=== PATIENT | male | born 1950 | race Caucasian/White ===

== ENCOUNTER 2022-05-02 19:06 | Inpatient (IN) | payer MEDICARE, OTHER, SELFPAY ==
--- NOTE | ~2022-05-02 | XR_ITS ---
EXAMINATION: XR ERCP DATE: 05/07/2022 12:57 INDICATION: Pancreatitis. TECHNIQUE: 5 spot fluoroscopic images of the right upper quadrant were obtained during endoscopic ret rograde cholangiopancreatography (ERCP). Fluoroscopy exposure time was 153 seconds. COMPARISON: CT abdomen and pelvis 07/14/2015 FINDINGS: The endoscope is in the second portion the duodenum. There is a wire with balloon in the co mmon duct. There is partial opacification of the common duct the contrast. There are surgical clips f rom cholecystectomy. IMPRESSION: 1. Balloon sweeping of the common duct. Please refer to the ERCP procedure note for additional detail s. Reviewed, dictated and finalized at location A. IMPRESSION: 1. Balloon sweeping of the common duct. Please refer to the ERCP procedure note for additional details.
--- NOTE | ~2022-05-02 | US_ITS ---
EXAMINATION: US abdomen limited DATE: 05/03/2022 08:47 INDICATION: Abdominal pain. Acute pancreatitis. No abnormal liver function tests. TECHNIQUE: Multiple grayscale and Doppler ultrasound images of the abdomen were obtained. COMPARISON: CT abdomen and pelvis 07/14/2015 FINDINGS: The visualized portions of the body of the pancreas are normal. The liver demonstrates hete rogeneous steatosis. No definite liver surface nodularity. There is normal flow in main portal vein. The gallbladder is absent. The common duct is enlarged to 10 mm, increased from 8 mm on 07/14/2015. IMPRESSION: 1. Hepatic steatosis. 2. Borderline dilated common duct status post cholecystectomy. Reviewed, dictated and finalized at location A.
--- NOTE | ~2022-05-02 | US_ITS ---
EXAMINATION: US venous doppler LE RT DATE: 05/03/2022 10:49 INDICATION: Hematoma at the right knee post recent surgery. TECHNIQUE: Grayscale ultrasound images without and with compression and Doppler ultrasound images of the right lower extremity veins were obtained. COMPARISON: None. FINDINGS: The visualized portions of right common femoral vein, profunda (deep) femoral vein, femoral vein, pop liteal vein, peroneal trunk, posterior tibial veins, peroneal veins, gastrocnemius vein and greater s aphenous vein outflow are patent. Complex Wood's cyst measuring 7.0 x 4.1 x 1.8 cm with complex hypo echoic fluid likely representing postoperative blood but without internal vascular flow on color Dopp ler. IMPRESSION: 1. No deep venous thrombosis in the right lower limb. 2. Complex fluid, likely postoperative hematoma within a moderate-sized Wood's cyst moderate at the right popliteal fossa. Reviewed, dictated and finalized at location A.
[2022-05-02 18:30] VITALS: BP 150/57; PULSE 86; RESP 20; TEMP 36.7; O2SAT 93
--- NOTE | 2022-05-02 18:31 | ADMGEN ---
This patient, Jayjay Galvan, was admitted to [facility] Surg Room 311-01 at 1825. Patient/family oriented to hospital policies and general routines including ID bracelet, bed and alarms, visiting hours, pain management, procedures, bathroom and other care routines, personal items, smoking policy, room service/diet, and visiting hours. Information on how to activate the Rapid Response Team has been discussed. Patient/Family are encouraged to report perceived risks to care and to ask questions if they do not understand what they are told or what they should do.
[2022-05-02 18:47] VITALS: BMI 38.3
[2022-05-02 19:00] VITALS: BMI 38.3
--- NOTE | 2022-05-02 21:04 | PM.IMHP ---
H&P: HPI History of Present Illness Date/Time: 05/02/222020 Chief Complaint: Abdominal Pain Narrative: This pleasant 71 year old male patient with significant PMH of CAD s/p MS and Cardiac stents x12, PAF not on any anticoagulation other than Baby ASA daily, Diastolic Heart Failure, HTN, GERD, Cholecystectomy 2008, Renal CA of Bladder and kidney with partial nephrectomy and bladder fulgration, Depression, HLD, HTN, PMR, MRSA from Groin wound, Sciatica, and Right knee Arthroscopy now 4 days ago with medial meniscal debridement presents to the Hospitalist Service at [facility] as a Direct Admit transfer from [facility] in [place], [place] with Acute Pancreatitis. He presented there with complaints of having abdominal pain that he endorses started right after his knee surgery on Tuesday and it did not resolve with any cathartics as he originally believed he was constipated after surgery. Workup in their ER was significant for a WBC count of 30.2 with Absolute Neutrophils of 25.97, mildly low Sodium at 125 that increased to 130 prior to transfer and a Potassium level of 3.3 that went down to 3.2 and he received a K+ rider in route. His renal function was normal and he had a normal Lactic acid. CT abdomen and pelvis showed Acute Pancreatitis, Diverticulosis without Diverticulitis, Severe coronary artery calcifications, and evidence of prior granulomatous disease. CXR was negative for any acute findings. The ER physician advised that there were some findings present on the CT scan that were concerning for a possible Choledocholithiasis, prompting him to be transferred as they did not have the capabilities of performing a ERCP in their facility. On my assessment meeting this patient in room 311, he denies any CP, Dyspnea, headache, lightheadedness, but does endorse that he has abdominal pain all across the upper regions of the abdomen with worsening in the epigastric region radiating to the LUQ. He has intermittent Nausea without vomiting. Even with his significant history of CAD and with his history of PAF, he only takes a Baby ASA daily for anticoagulation. Search of the EMR does not give any history of ECHO/Cath reports/Stress reports. There is mention in his records from other facility that he had Heart catheterizations in 09/2009, 09/2012, 05/2015 and 05/02/2019 in which his EF was noted to be 65% during the cath from 2019. It does also mention that he has multiple stents in the following arteries: LAD, Posterior Descending and Circumflex. Review of Systems Review of Systems: All systems reviewed & are unremarkable except as noted in HPI and below PMFSH Past Medical History Medical History CAD (coronary artery disease) Depression Diastolic heart failure History of left heart catheterization Hyperlipidemia Hypertension MRSA (methicillin resistant staph aureus) culture positive Paroxysmal atrial fibrillation PMR (polymyalgia rheumatica) Renal cancer Sciatica Surgical History Surgical History H/O partial nephrectomy History of cholecystectomy History of heart artery stent Social History Social History Smoking status: Former smoker Tobacco type: cigarettes Second hand tobacco smoke exposure: No Alcohol intake: current Alcohol use details: Drinks approximately twice/year. Substance use: never Living arrangements: with family Occupation/Education: occupation Additional occupation/education comments: [employer] Gender identity (if verbalized by the patient): Male Spiritual care concerns: No Meds Home Medications and Allergies Home Medications Medication Instructions Recorded Confirmed Type amlodipine 10 mg tablet 10 tablet PO DAILY 05/02/22 05/02/22 History aspirin 81 mg tablet,delayed 81 mg PO DAILY 05/02/22 05/02/22 History
[2022-05-02 21:19] LABS: Basophils Percent Auto 0.1 % (0.2-1.2); Eosinophils Percent Auto 0.1 % (0-4.4); Hematocrit 32.8 % (42.0-52.0); Immature Granulocyte Absolute 0.19 K/mm3 (0.00-0.031); Immature Granulocyte Percent A 0.8 % (0-0.5); Lymphocytes Absolute Auto 1.21 K/mm3 (0.9-3.2); Lymphocytes Percent Auto 5.1 % (18.3-44.2); Mean Corpuscular HGB Conc 33.5 g/dl (32-36); Mean Corpuscular Hemoglobin 29.2 pg (26-34); Mean Platelet Volume 10.9 fl (7.4-10.4); Monocytes Absolute Auto 2.4 K/mm3 (0.1-0.6); Monocytes Percent Auto 9.9 % (2.6-8.5); Neutrophils Absolute Auto 20.1 K/mm3 (1.3-6.7); Platelet Count Result 265 k/mm3 (150-375); Red Blood Count 3.77 M/mm3 (4.6-6.20); Red Cell Distribution Width 13.2 % (11.5-14.5); White Blood Count 23.9 K/mm3 (4.5-10.0)
[2022-05-02] MEDS: HYDROmorphone HCL INJ (*CRX) 1 MG/ML SYR IV PUSH (21:24)
[2022-05-02] MEDS: PANTOPRAZOLE SODIUM IV 40 MG VIAL IV PUSH (21:24)
[2022-05-02 21:28] LABS: Alanine Aminotransferase 292 U/L (6-50); Albumin Level 3.3 g/dL (3.5-5.1); Alkaline Phosphatase 219 U/L (38-126); Anion Gap 4 mmol/L (8-16); Aspartate Amino Transferase 146 U/L (17-59); Bilirubin,Total 4.3 mg/dL (0.2-1.3); Blood Urea Nitrogen 11 mg/dL (9-20); Calcium 8.1 mg/dL (8.4-10.2); Carbon Dioxide 27 mmol/L (22-30); Chloride 97 mmol/L (98-107); Estimated CRCL calculation 82 ml/min; Estimated Glomerular Filt Rate > 60; Glucose 104 mg/dL (65-110); Lipase 238 U/L (23-300); Magnesium 2.4 mg/dL (1.6-2.3); Potassium 3.4 mmol/L (3.4-5.0); Sodium 128 mmol/L (137-145)
[2022-05-02 21:29] LABS: INR 1.1; Lactic Acid Reflex 1.2 mmol/L (0.7-2.0); Prothrombin Time 14.1 Seconds (11.1-14.7)
[2022-05-02 21:30] LABS: Partial Thromboplastin Time 35.8 SECONDS (22.3-36.8)
[2022-05-02 21:32] LABS: Platelet Estimate Adequate (Adequate)
[2022-05-02 21:33] LABS: Burr Cells 1+ (NORMAL)
[2022-05-02 21:45] LABS: Hemoglobin A1C 5.1 % (<5.7)
[2022-05-02 22:00] VITALS: BP 152/58; PULSE 94; RESP 13; TEMP 36.3; O2SAT 93
[2022-05-02 22:17] LABS: Procalcitonin 0.5 ng/mL
[2022-05-02] MEDS: SODIUM CHLORIDE 0.9% IV 1,000 ML 125 ML IV CONT (22:50)
[2022-05-02 23:42] LABS: Bilirubin Direct 0.2 mg/dL (0-0.3); Bilirubin Indirect 2.6 mg/dL (0-1.1)
[2022-05-03] MEDS: CIPROFLOXACIN 400 MG/D5W 200ML 200 ML 200 MG IVPB ×3 (00:06→20:23)
[2022-05-03 00:17] LABS: Hepatitis B Surface Antigen Negative (Negative)
[2022-05-03 00:22] LABS: HAV RESULT Negative (Negative); Hepatitis B Core IgM Result Negative (Negative)
[2022-05-03 00:34] LABS: Hepatitis C Virus Antibody Negative (Negative)
[2022-05-03] MEDS: metroNIDAZOLE 500 MG/ISO 100ML 500 MG/100 ML BAG 100 MG IVPB ×4 (01:13→21:29)
[2022-05-03] MEDS: HYDROmorphone HCL INJ (*CRX) 1 MG/ML SYR IV PUSH ×4 (05:41→22:49)
[2022-05-03 06:00] VITALS: BP 153/65; PULSE 97; RESP 14; TEMP 36.4; O2SAT 98
[2022-05-03 06:14] LABS: Basophils Percent Auto 0.1 % (0.2-1.2); Eosinophils Absolute Auto 0.1 K/mm3 (0-0.3); Eosinophils Percent Auto 0.3 % (0-4.4); Hematocrit 30.7 % (42.0-52.0); Hemoglobin 10.4 g/dL (14.0-18.0); Immature Granulocyte Percent A 0.9 % (0-0.5); Lymphocytes Absolute Auto 1.03 K/mm3 (0.9-3.2); Lymphocytes Percent Auto 4.9 % (18.3-44.2); Mean Corpuscular HGB Conc 33.9 g/dl (32-36); Mean Corpuscular Hemoglobin 29.5 pg (26-34); Mean Platelet Volume 11.5 fl (7.4-10.4); Monocytes Absolute Auto 2.3 K/mm3 (0.1-0.6); Monocytes Percent Auto 10.8 % (2.6-8.5); Neutrophils Absolute Auto 17.5 K/mm3 (1.3-6.7); Platelet Count Result 288 k/mm3 (150-375); Red Blood Count 3.53 M/mm3 (4.6-6.20); Red Cell Distribution Width 13.2 % (11.5-14.5); White Blood Count 21.1 K/mm3 (4.5-10.0)
[2022-05-03 06:19] LABS: Alanine Aminotransferase 213 U/L (6-50); Alkaline Phosphatase 200 U/L (38-126); Anion Gap 6 mmol/L (8-16); Aspartate Amino Transferase 84 U/L (17-59); Bilirubin,Total 3.6 mg/dL (0.2-1.3); Blood Urea Nitrogen 10 mg/dL (9-20); Calcium 7.6 mg/dL (8.4-10.2); Carbon Dioxide 24 mmol/L (22-30); Chloride 100 mmol/L (98-107); Estimated CRCL calculation 93 ml/min; Estimated Glomerular Filt Rate > 60; Glucose 108 mg/dL (65-110); Lipase 122 U/L (23-300); Magnesium 2.2 mg/dL (1.6-2.3); Potassium 3.2 mmol/L (3.4-5.0); Sodium 130 mmol/L (137-145)
[2022-05-03 06:20] LABS: INR 1.2; Prothrombin Time 14.6 Seconds (11.1-14.7)
[2022-05-03 06:21] LABS: Partial Thromboplastin Time 44.1 SECONDS (22.3-36.8)
[2022-05-03 06:22] LABS: Lactic Acid Reflex 1.2 mmol/L (0.7-2.0)
[2022-05-03 06:41] LABS: Cholesterol 117 mg/dL (0-200); HDL Direct 25 mg/dL; Triglycerides 129 mg/dL (<150)
[2022-05-03 06:51] LABS: LDL Cholesterol Direct 41 mg/dL
--- NOTE | 2022-05-03 07:53 | PM.IMPN ---
Progress Note: A&P Assessment and Plan (1) Acute pancreatitis: Code(s): K85.90 - Acute pancreatitis without necrosis or infection, unspecified Status: Acute Assessment and Plan: - Consult GI Service, appreciate their co-management. - Lipase at outside facility was >700. ---improved - Continue IVF of NS at 125 ml/hr - PRN pain meds and anti-emetics -fasting lipids WNL - NPO - Concern for possible Choledocholithiasis - Trend Labs and monitor VS. - US of RUQ abdomen pending. (2) Hyperbilirubinemia: Code(s): E80.6 - Other disorders of bilirubin metabolism Status: Acute Assessment and Plan: - 4.3 Total Bilirubin - Check direct and indirect Bili levels - Concern for possible Choledocholithiasis - As LFT's and Bili are both markedly elevated with ALT at 292, AST of 146 and Alk Phos of 219, Hepatitis Panel ordered. - Other possible etiology is the extensive bruising noted to the RLE above and medial of the knee from his recent Knee arthroscopy. Pt. had a tourniquet in place. However, will order a venous Doppler due to the patient's lower extremity edema and tightness around the area (3) Leukocytosis, unspecified: Code(s): D72.829 - Elevated white blood cell count, unspecified Status: Acute Assessment and Plan: - Markedly elevated at 23.9 with elevated Absolute Neutrophils of 20.1. - Normal Lactic Acid - Procalcitonin pending - Etiology of elevated WBC count includes Infection or Inflammation from both the Pancreas as well as the right knee as he is four days post Right Knee Arthroscopy. - VSS, pt. does not meet Sepsis criteria, but as there is possible concern for infection, will start abx of Cipro and Flagyl empirically. May de-escalate or stop abx when clinically appropriate. Choice of abx based upon allergies. (4) S/P right knee arthroscopy: Code(s): Z98.890 - Other specified postprocedural states Status: Acute Assessment and Plan: - Post-op Day #4 today - PRN pain control (5) CAD (coronary artery disease): Code(s): I25.10 - Atherosclerotic heart disease of [place] coronary artery without angina pectoris Status: Acute Assessment and Plan: - Significant History identified from PMH - Cardiac stents x12, multiple cardiac catheterizations x4 - Child Specialist is Dr. Perez at [facility] in [facility] - Pt's only re-occlusion prevention is ASA. He does not take Plavix or other anticoagulant. - Currently asymptomatic of any CP, but if he develops any, it should be remembered he is an extremely high risk with his history. (6) HLD (hyperlipidemia): Code(s): E78.5 - Hyperlipidemia, unspecified Status: Acute Assessment and Plan: - Fasting lipid panel ordered for morning to assess for causation of Pancreatitis - Continue Atorvastatin 80 mg po daily. - NPO now, but when able to eat, suggest Prudent Cardiac Diet. (7) HTN (hypertension): Code(s): I10 - Essential (primary) hypertension Status: Acute Assessment and Plan: - Continue to monitor labs and VS. - Continue home meds of Amlodipine 10 mg po daily, Lisinopril 40 mg po daily, Metoprolol Succinate 100 mg po daily (8) Transaminitis: Code(s): R74.01 - Elevation of levels of liver transaminase levels Status: Acute Assessment and Plan: - As LFT's and Bili are both markedly elevated with ALT at 292, AST of 146 and Alk Phos of 219, Hepatitis Panel ordered. - Concern for Choledocholithiasis in the setting of having had a previous Cholecystectomy, and in the setting of having acute pancreatitis. - Trend labs and VS - RUQ US ordered for tomorrow. - Hepatitis Panel pending. (9) Hematoma: Code(s): T14.8XXA - Other injury of unspecified body region, initial encounter Status: Acute Assessment and Plan: Patient has significant hematoma to the right anterior thigh, swelling, firm and tight Obtain a venous Doppler to rule out possi
[2022-05-03 08:30] LABS: CRP 26.2 mg/dL (<1.0)
[2022-05-03] MEDS: SODIUM CHLORIDE 0.9% IV 1,000 ML 125 ML IV CONT (09:22)
[2022-05-03] MEDS: amLODIPine BESYLATE 5 MG TABLET 10 MG PO (09:23)
[2022-05-03 09:24] VITALS: PULSE 94
[2022-05-03] MEDS: ATORVASTATIN 40 MG TABLET 80 MG PO (09:24)
[2022-05-03] MEDS: CHOLECALCIFEROL 1,000 UNITS TABLET 1000 UNITS PO (09:24)
[2022-05-03] MEDS: PANTOPRAZOLE SODIUM IV 40 MG VIAL IV PUSH ×2 (09:24→20:23)
[2022-05-03] MEDS: lisinopriL 20 MG TABLET 40 MG PO (09:24)
[2022-05-03] MEDS: METOPROLOL SUCCINATE EXT REL 100 MG TABCR PO (09:24)
[2022-05-03 09:44] LABS: Platelet Estimate Adequate (Adequate)
--- NOTE | 2022-05-03 10:24 | PCOTNOTE ---
Attempted to see pt. for occupational therapy evaluation. Pt. still awaiting selena doppler on R LE to rule out DVT and active bleed. Pt. informed also stating that he was too tired at this time to participate. Nursing updated. Will follow.
--- NOTE | 2022-05-03 10:34 | PCPTNOTE ---
Attempted to see pt. for PT evaluation. Pt. still awaiting selena Doppler on R LE to rule out DVT and active bleed. Pt. informed also stating that he was too tired at this time to participate. Nursing updated. Will follow.
[2022-05-03] MEDS: KCL 20 MEQ/SW 100 ML 100 ML 50 MEQ IVPB (11:11)
--- NOTE | 2022-05-03 12:00 | PCOTNOTE ---
Attempted to see pt. for occupational therapy evaluation. Pt. refused at this time due to fatigue and discomfort.
[2022-05-03 14:00] VITALS: BP 136/52; PULSE 86; RESP 18; TEMP 36.5; O2SAT 90
--- NOTE | 2022-05-03 14:12 | PCPTNOTE ---
Attempted PT evaluation, Patient adamantly refused stating he doesn't need physical therapy. Per patient, he has not ate/drank anything and is too weak to do anything. RN in room as patient refused. Will follow.
--- NOTE | 2022-05-03 14:45 | WPDGICN ---
Assessment and Plan Assessment and plan (1) Hyperbilirubinemia: Code(s): E80.6 - Other disorders of bilirubin metabolism Status: Acute Assessment and Plan: he is visibly jaundiced. His bilirubin is a bit lower today. I suspect he has common bile duct sludge or stone also explaining the mild bile duct dilatation. If this resolves spontaneously his bilirubin should drop relatively quickly. Assuming it does not, I will plan on performing ERCP tomorrow (2) Transaminitis: Code(s): R74.01 - Elevation of levels of liver transaminase levels Status: Acute Assessment and Plan: this is likely due to his suspected choledocholithiasis. Liver disease less likely but we will trend his transaminases. (3) CAD (coronary artery disease): Code(s): I25.10 - Atherosclerotic heart disease of [place] coronary artery without angina pectoris Status: Acute Assessment and Plan: He has also had atrial fibrillation. He takes 1 aspirin tablet a day. (4) Acute pancreatitis: Code(s): K85.90 - Acute pancreatitis without necrosis or infection, unspecified Status: Acute Assessment and Plan: He has never had pancreatitis in the past. He does not drink alcohol. Was no recent change in his medications. It appears that he probably has choledocholithiasis. I akilah a picture explain the process. Also explained ERCP in told that tentatively I will schedule him for that to be done tomorrow. In the interim I think he can have a clear liquid diet GI Consult Note Consult date/time: 05/03/22 14:45 HPI: Jayjay Galvan is a 71 year old male who was admitted with abdominal pain nausea vomiting. He states that this all began shortly after he had arthroscopic right knee surgery last week Tuesday. Later in the day he was having upper abdominal discomfort and thought perhaps he had been wearing a binder during the procedure. He did begin to notice a great deal of ecchymosis on the inner aspect of his thigh after surgery. By he was very nauseated and has also been vomiting. He over those next 4 days he had 2 bites of cottage cheese, and 1 or 2 other tiny snacks. He has no appetite and is nauseated. He states that the hydromorphone helps cut his pain but it comes back in about 3 hours. His noticed that he was becoming jaundiced. He has no past history of liver disease or pancreatic disease. His lipase was normal on admission but CT scan that showed pancreatitis. Liver enzymes also are elevated, bilirubin 4.3 on admission, now 3.6 likewise AST and ALT are elevated as is the alkaline phosphatase. he denies drinking alcohol except about twice a year. He did have his gallbladder removed several years ago. He also has coronary artery disease and described how he was hospitalized for 1 day with weakness he had a normal CT scan and the nurse practitioner wanted to obtain an ultrasound looking for kidney stones, even though he had a normal ultrasound just days before as an outpatient. He states that they then ruled losing discharged him; but within 24 hours his local provider visited him at his house and found that his oxygen saturation was in the 60s and he had a tachycardia. He was found to have acute atrial fibrillation at that time. Consequently he takes aspirin once a day now Review of Systems Review of Systems: All systems reviewed & are unremarkable except as noted in HPI and below PMFSH Past Medical History Medical History CAD (coronary artery disease) Depression Diastolic heart failure History of left heart catheterization Hyperlipidemia Hypertension MRSA (methicillin resistant staph aureus) culture positive Paroxysmal atrial fibrillation PMR (polymyalgia rheumatica) Renal cancer Sciatica Surgical History Surgical History H/O partial nephrectomy History of
[2022-05-03 22:00] VITALS: BP 138/61; PULSE 83; RESP 18; TEMP 36.9; O2SAT 97
[2022-05-04] VITALS (10 sets, daily range): BP systolic 121–153; BP diastolic 44–71; PULSE 70–82; RESP 17–27; TEMP 36.2–37.1; O2SAT 90–100
[2022-05-04] MEDS: SODIUM CHLORIDE 0.9% IV 1,000 ML 125 ML IV CONT (04:05)
[2022-05-04] MEDS: HYDROmorphone HCL INJ (*CRX) 1 MG/ML SYR IV PUSH ×2 (04:06→09:16)
[2022-05-04] MEDS: metroNIDAZOLE 500 MG/ISO 100ML 500 MG/100 ML BAG 100 MG IVPB ×2 (05:21→20:59)
[2022-05-04 06:27] LABS: Basophils Percent Auto 0.2 % (0.2-1.2); Eosinophils Absolute Auto 0.3 K/mm3 (0-0.3); Eosinophils Percent Auto 1.6 % (0-4.4); Hematocrit 26.9 % (42.0-52.0); Hemoglobin 8.8 g/dL (14.0-18.0); Immature Granulocyte Absolute 0.21 K/mm3 (0.00-0.031); Immature Granulocyte Percent A 1.1 % (0-0.5); Lymphocytes Absolute Auto 1.32 K/mm3 (0.9-3.2); Lymphocytes Percent Auto 7.1 % (18.3-44.2); Mean Corpuscular HGB Conc 32.7 g/dl (32-36); Mean Corpuscular Hemoglobin 28.9 pg (26-34); Mean Corpuscular Volume 88.5 fl (80-100); Mean Platelet Volume 10.6 fl (7.4-10.4); Monocytes Absolute Auto 2.1 K/mm3 (0.1-0.6); Monocytes Percent Auto 11.1 % (2.6-8.5); Neutrophils Absolute Auto 14.8 K/mm3 (1.3-6.7); Neutrophils Percent Auto 78.9 % (45.5-73.1); Platelet Count Result 247 k/mm3 (150-375); Red Blood Count 3.04 M/mm3 (4.6-6.20); Red Cell Distribution Width 13.7 % (11.5-14.5); White Blood Count 18.7 K/mm3 (4.5-10.0)
[2022-05-04 06:40] LABS: Lactic Acid Reflex 0.7 mmol/L (0.7-2.0)
[2022-05-04 06:47] LABS: Alanine Aminotransferase 127 U/L (6-50); Albumin Level 2.6 g/dL (3.5-5.1); Alkaline Phosphatase 166 U/L (38-126); Anion Gap 3 mmol/L (8-16); Aspartate Amino Transferase 44 U/L (17-59); Bilirubin,Total 2.4 mg/dL (0.2-1.3); Blood Urea Nitrogen 11 mg/dL (9-20); Calcium 6.9 mg/dL (8.4-10.2); Carbon Dioxide 26 mmol/L (22-30); Chloride 103 mmol/L (98-107); Estimated CRCL calculation 82 ml/min; Estimated Glomerular Filt Rate > 60; Glucose 92 mg/dL (65-110); Magnesium 2.2 mg/dL (1.6-2.3); Potassium 3.5 mmol/L (3.4-5.0); Sodium 132 mmol/L (137-145)
[2022-05-04] MEDS: PANTOPRAZOLE SODIUM IV 40 MG VIAL IV PUSH ×2 (09:14→20:59)
[2022-05-04] MEDS: CHOLECALCIFEROL 1,000 UNITS TABLET 1000 UNITS PO (09:14)
[2022-05-04] MEDS: lisinopriL 20 MG TABLET 40 MG PO (09:15)
[2022-05-04] MEDS: ATORVASTATIN 40 MG TABLET 80 MG PO (09:16)
--- NOTE | 2022-05-04 11:54 | PM.IMPN ---
Progress Note: A&P Assessment and Plan (1) Acute pancreatitis: Code(s): K85.90 - Acute pancreatitis without necrosis or infection, unspecified Status: Acute Assessment and Plan: - Consult GI Service, appreciate their co-management. plan for ERCP today. - Lipase at outside facility was >700. Lipase now normal. Monitor daily. - Continue IVF of NS at 125 ml/hr . The patient stated he tried some liquids yesterday but was not able to tolerate them. May consider switching to LR D5 half-normal saline. - PRN pain meds and anti-emetics -fasting lipids WNL - NPO - Concern for possible Choledocholithiasis - Trend Labs and monitor VS. (2) Hyperbilirubinemia: Code(s): E80.6 - Other disorders of bilirubin metabolism Status: Acute Assessment and Plan: - 4.3 Total Bilirubin But today is 2.4 on 05/04/2022. - Check direct and indirect Bili levels - Concern for possible Choledocholithiasis - As LFT's and Bili are both markedly elevated with ALT at 177, AST of 44 and Alk Phos of 166. - Other possible etiology is the extensive bruising noted to the RLE above and medial of the knee from his recent Knee arthroscopy. Pt. had a tourniquet in place. Venous Dopplers negative for DVT. (3) Leukocytosis, unspecified: Code(s): D72.829 - Elevated white blood cell count, unspecified Status: Acute Assessment and Plan: - White count is down to 18.7. - Normal Lactic Acid - Etiology of elevated WBC count includes Infection or Inflammation from both the Pancreas as well as the right knee as he is Six days post Right Knee Arthroscopy. - VSS, pt. does not meet Sepsis criteria, but as there is possible concern for infection, will start abx of Cipro and Flagyl empirically. May de-escalate or stop abx when clinically appropriate. Choice of abx based upon allergies. (4) S/P right knee arthroscopy: Code(s): Z98.890 - Other specified postprocedural states Status: Acute Assessment and Plan: - Post-op Day #6 today - PRN pain control - continue with ice pack on every 2 hours. (5) CAD (coronary artery disease): Code(s): I25.10 - Atherosclerotic heart disease of [place] coronary artery without angina pectoris Status: Acute Assessment and Plan: - Significant History identified from [facility] - Cardiac stents x12, multiple cardiac catheterizations x4 - Arts Education Teacher is Dr. Perez at [facility] in [facility] - Pt's only re-occlusion prevention is ASA. He does not take Plavix or other anticoagulant. - Currently asymptomatic of any CP, but if he develops any, it should be remembered he is an extremely high risk with his history. (6) HLD (hyperlipidemia): Code(s): E78.5 - Hyperlipidemia, unspecified Status: Acute Assessment and Plan: - Fasting lipid panel - hold statin due to elevated liver enzymes. - NPO now, but when able to eat, suggest Prudent Cardiac Diet. (7) HTN (hypertension): Code(s): I10 - Essential (primary) hypertension Status: Acute Assessment and Plan: - Continue to monitor labs and VS. - Continue home meds of Amlodipine 10 mg po daily, Lisinopril 40 mg po daily, Metoprolol Succinate 100 mg po daily (8) Transaminitis: Code(s): R74.01 - Elevation of levels of liver transaminase levels Status: Acute Assessment and Plan: - As LFT's and Bili are both markedly elevated . - Concern for Choledocholithiasis in the setting of having had a previous Cholecystectomy, and in the setting of having acute pancreatitis. - Trend labs and VS - RUQ US Read as 1. Hepatic steatosis. 2. Borderline dilated common duct status post cholecystectomy. - Hepatitis Panel pending. - ERCP pending (9) Hematoma: Code(s): T14.8XXA - Other injury of unspecified body region, initial encounter Status: Acute Assessment and Plan: Patient has significant hematoma to the right anterior thigh, swelling, firm and tight
--- NOTE | 2022-05-04 12:13 | PCPTNOTE ---
Attempted PT evaluation, per patient he does not need physical therapy at this time. Patient believes stiffness in R knee is from swelling and will resolve with time. Hospitalist made aware of patient refusal. Patient DC at this time. Please re-order if patient willing to participate.
[2022-05-04] MEDS: CIPROFLOXACIN 400 MG/D5W 200ML 200 ML 200 MG IVPB ×2 (12:18→21:00)
[2022-05-04 12:23] LABS: Hemoglobin 9.3 g/dL (14.0-18.0)
[2022-05-04 12:32] LABS: Immature Reticulocyte Fraction 23.9 % (3.0-15.9); Reticulocyte Hemoglobin Conten 29.7 pg (28.2-35.7); Reticulocytes Absolute 0.09 B/L (32.2-175.7)
[2022-05-04 12:34] LABS: Creatine Kinase 66 U/L (55-170)
[2022-05-04 12:46] LABS: Bilirubin,Total 2.3 mg/dL (0.2-1.3)
[2022-05-04] MEDS: LACTATED RINGERS 1,000 ML 150 ML IV CONT (13:26)
--- NOTE | 2022-05-04 13:33 | WPDANESEPPF ---
Anes - Initial Pre Proc Eval Procedure: Operation Date: 05/04/22 13:00 Proposed Procedures p Endoscopic Retro Cholangiopancreatogram - Rome Valladares MD Date/Time: 05/04/22 13:33 Surgeon: Roz Gomez NP Pre Op Diagnosis: PANCREATITIS Patient Data Age: 71 Gender: M Height: 1.65 m Weight: 104.5 kg Last Vital Signs Temp 98.8 F 05/04/22 13:08 Pulse 82 05/04/22 13:08 Resp 18 05/04/22 13:08 BP 152/55 H 05/04/22 13:08 Pulse Ox 96 05/04/22 13:08 O2 Del Method Room Air 05/04/22 13:08 Allergies Allergy/AdvReac Type Severity Reaction Status Date / Time adhesive Allergy Severe RASH Verified 10/21/10 09:30 codeine Allergy Severe HIVES Verified 01/29/09 13:12 Penicillins Allergy Severe HIVES, Verified 01/29/09 13:12 SWELLING, DIFF BREATHING Sulfa (Sulfonamide Allergy Hives Verified 05/04/22 13:06 Antibiotics) Home Medications Medication Instructions Recorded Confirmed Type amlodipine 10 mg tablet 10 tablet PO DAILY 05/02/22 05/02/22 History aspirin 81 mg tablet,delayed 81 mg PO DAILY 05/02/22 05/02/22 History release atorvastatin 80 mg tablet 80 tablet PO DAILY 05/02/22 05/02/22 History cholecalciferol (vitamin D3) 25 25 mcg PO DAILY 05/02/22 05/02/22 History mcg (1,000 unit) tablet (Vitamin D3) famotidine 40 mg tablet 40 tablet PO DAILY 05/02/22 05/02/22 History lisinopril 40 mg tablet 40 tablet PO DAILY 05/02/22 05/02/22 History metoprolol succinate 100 mg 100 tablet PO DAILY 05/02/22 05/02/22 History tablet,extended release 24 hr nitroglycerin 0.4 mg sublingual 0.4 tablet sublingual PRN PRN 05/02/22 05/02/22 History tablet chest pain Laboratory Tests 05/02/22 05/02/22 05/04/22 20:56 20:56 06:02 WBC RBC Hgb Hct MCV MCH MCHC RDW Plt Count MPV Immature Gran % (Auto) Neut % (Auto) Lymph % (Auto) Garfield % (Auto) Eos % (Auto) Baso % (Auto) Lymph # (Auto) Garfield # (Auto) Eos # (Auto) Baso # (Auto) Abs Immat Gran (auto) Absolute Neuts (auto) Absolute Nucleated RBC Nucleated RBC % Absolute Retic 0.09 B/L L B/L (32.2-175.7) Percent Retic 2.90 % % (0.7-4.3) Immature Retic Fraction 23.9 % H % (3.0-15.9) Retic Hgb Content 29.7 pg pg (28.2-35.7) Haptoglobin Pending Sodium Potassium Chloride Carbon Dioxide Anion Gap BUN Creatinine Estim Creat Clear Calc Estimated GFR Glucose Lactic Acid Calcium Magnesium Iron Pending TIBC Pending % Saturation Pending Ferritin Pending Total Bilirubin Direct Bilirubin AST ALT Alkaline Phosphatase Lactate Dehydrogenase Total Creatine Kinase Total Protein Albumin Vitamin B12 Folate 05/04/22 05/04/22 05/04/22 06:02 06:04 06:04 WBC 18.7 K/mm3 H K/mm3 (4.5-10.0) RBC 3.04 M/mm3 L M/mm3 (4.6-6.20) Hgb 8.8 g/dL L g/dL (14.0-18.0) Hct 26.9 % L % (42.0-52.0) MCV 88.5 fl fl (80-100) MCH 28.9 pg pg (26-34) MCHC 32.7 g/dl g/dl (32-36) RDW 13.7 % % (11.5-14.5) Plt Count 247 k/mm3 k/mm3 (150-375) MPV 10.6 fl H fl (7.4-10.4) Immature Gran % (Auto) 1.1 % H % (0-0.5) Neut % (Auto) 78.9 % H % (45.5-73.1) Lymph % (Auto) 7.1 % L % (18.3-44.2) Garfield % (Auto) 11.1 % H % (2.6-8.5
--- NOTE | 2022-05-04 13:35 | PCOTNOTE ---
Multiple attempts for OT evaluation. Pt. declined therapy services at this time. Confirmed with nursing and followed up with Hospitalist, awaiting return of message. Patient DC at this time. Please re-order if patient willing to participate.
[2022-05-04] MEDS: INDOMETHACIN 50 MG SUPP.RECT 100 MG RECTAL (14:04)
[2022-05-04 17:15] LABS: Iron 24 ug/dL (49-181)
[2022-05-04 17:27] LABS: Percent Iron Saturation 11 % (20-50)
[2022-05-04 17:30] LABS: Hematocrit 32.1 % (42.0-52.0); Hemoglobin 10.6 g/dL (14.0-18.0)
[2022-05-04 17:45] LABS: Alanine Aminotransferase 133 U/L (6-50); Albumin Level 3.3 g/dL (3.5-5.1); Alkaline Phosphatase 203 U/L (38-126); Aspartate Amino Transferase 60 U/L (17-59); Bilirubin,Total 3.4 mg/dL (0.2-1.3)
[2022-05-04 21:29] LABS: Lactate Dehydrogenase 945 U/L (313-618)
[2022-05-04 22:41] LABS: Folic Acid 10.1 ng/mL (2.76->20)
[2022-05-05 01:19] LABS: Hematocrit 27.3 % (42.0-52.0); Hemoglobin 9.2 g/dL (14.0-18.0)
[2022-05-05] MEDS: SODIUM CHLORIDE 0.9% IV 1,000 ML 125 ML IV CONT ×2 (02:29→14:02)
[2022-05-05] MEDS: metroNIDAZOLE 500 MG/ISO 100ML 500 MG/100 ML BAG 100 MG IVPB ×3 (05:30→21:23)
[2022-05-05 05:42] VITALS: BP 127/63; PULSE 73; RESP 18; TEMP 36.2; O2SAT 97
[2022-05-05 06:54] LABS: Basophils Percent Auto 0.1 % (0.2-1.2); Hematocrit 28.6 % (42.0-52.0); Hemoglobin 9.3 g/dL (14.0-18.0); Immature Granulocyte Absolute 0.23 K/mm3 (0.00-0.031); Immature Granulocyte Percent A 1.4 % (0-0.5); Lymphocytes Absolute Auto 1.05 K/mm3 (0.9-3.2); Lymphocytes Percent Auto 6.4 % (18.3-44.2); Mean Corpuscular HGB Conc 32.5 g/dl (32-36); Mean Corpuscular Hemoglobin 29.2 pg (26-34); Mean Corpuscular Volume 89.7 fl (80-100); Mean Platelet Volume 10.5 fl (7.4-10.4); Monocytes Absolute Auto 1.3 K/mm3 (0.1-0.6); Monocytes Percent Auto 7.9 % (2.6-8.5); Neutrophils Absolute Auto 13.9 K/mm3 (1.3-6.7); Neutrophils Percent Auto 84.2 % (45.5-73.1); Platelet Count Result 272 k/mm3 (150-375); Red Blood Count 3.19 M/mm3 (4.6-6.20); Red Cell Distribution Width 13.7 % (11.5-14.5); White Blood Count 16.5 K/mm3 (4.5-10.0)
[2022-05-05 07:04] LABS: Alanine Aminotransferase 107 U/L (6-50); Albumin Level 2.7 g/dL (3.5-5.1); Alkaline Phosphatase 175 U/L (38-126); Anion Gap 4 mmol/L (8-16); Aspartate Amino Transferase 60 U/L (17-59); Blood Urea Nitrogen 12 mg/dL (9-20); Calcium 7.5 mg/dL (8.4-10.2); Carbon Dioxide 24 mmol/L (22-30); Chloride 108 mmol/L (98-107); Estimated CRCL calculation 93 ml/min; Estimated Glomerular Filt Rate > 60; Glucose 117 mg/dL (65-110); Potassium 3.5 mmol/L (3.4-5.0); Sodium 136 mmol/L (137-145)
[2022-05-05 08:32] LABS: Immunochemical Fecal Occult Bl Positive (N)
[2022-05-05 08:33] LABS: IFOB Positive Control Positive
[2022-05-05 08:48] VITALS: PULSE 72
[2022-05-05] MEDS: CHOLECALCIFEROL 1,000 UNITS TABLET 1000 UNITS PO (08:48)
[2022-05-05] MEDS: METOPROLOL SUCCINATE EXT REL 100 MG TABCR PO (08:48)
[2022-05-05] MEDS: lisinopriL 20 MG TABLET 40 MG PO (08:48)
[2022-05-05] MEDS: amLODIPine BESYLATE 5 MG TABLET 10 MG PO (08:48)
[2022-05-05] MEDS: PANTOPRAZOLE SODIUM IV 40 MG VIAL IV PUSH ×2 (08:48→20:24)
--- NOTE | 2022-05-05 09:01 | WPDANESPN ---
Anes - Prog Note Post-Op Date/Time: 05/05/22 09:01 Vital Signs: Last Vital Signs Temp 36.2 C L 05/05/22 05:42 Pulse 72 05/05/22 08:48 Resp 18 05/05/22 05:42 BP 127/63 05/05/22 05:42 Pulse Ox 97 05/05/22 05:42 O2 Del Method Room Air 05/04/22 15:48 Pain Score (VAS): 0 I/O: Intake & Output 05/04/22 05/05/22 05/05/22 23:59 07:59 15:59 Intake Total 1640 0 Balance 1640 0 Laboratory Tests 05/05/22 06:39 05/05/22 06:39 05/02/22 05/02/22 05/04/22 20:56 20:56 06:02 WBC RBC Hgb Hct MCV MCH MCHC RDW Plt Count MPV Immature Gran % (Auto) Neut % (Auto) Lymph % (Auto) [place] % (Auto) Eos % (Auto) Baso % (Auto) Lymph # (Auto) [place] # (Auto) Eos # (Auto) Baso # (Auto) Abs Immat Gran (auto) Absolute Neuts (auto) Absolute Nucleated RBC Nucleated RBC % Absolute Retic 0.09 L Percent Retic 2.90 Immature Retic Fraction 23.9 H Retic Hgb Content 29.7 Haptoglobin Pending Sodium Potassium Chloride Carbon Dioxide Anion Gap BUN Creatinine Estim Creat Clear Calc Estimated GFR Glucose Calcium Iron 24 L TIBC 218 L % Saturation 11 L Ferritin 1230.00 H Total Bilirubin Direct Bilirubin AST ALT Alkaline Phosphatase Lactate Dehydrogenase Total Creatine Kinase Total Protein Albumin Vitamin B12 Folate Ur Random Creatinine U Random Total Protein Protein/Creatinin Ratio Urine Albumin U Qwstz-1-Zzwutafn U Bqzea-0-Lhnpaiih U Beta Globulin U Gamma Globulin U Abnormal Prot Band 1 U Abnormal Prot Band 2 U Abnormal Prot Band 3 Urine PEP Interpret Stl Occult Blood (IFOB) SHMUEL, IgG Interpret SHMUEL, Poly Interpret SHMUEL, Complement Interp 05/04/22 05/04/22 05/04/22 06:02 12:11 12:13 WBC RBC Hgb 9.3 L Hct 28.0 L MCV MCH MCHC RDW Plt Count MPV Immature Gran % (Auto) Neut % (Auto) Lymph % (Auto) [place] % (Auto) Eos % (Auto) Baso % (Auto) Lymph # (Auto) [place] # (Auto) Eos # (Auto) Baso # (Auto) Abs Immat Gran (auto) Absolute Neuts (auto) Absolute Nucleated RBC Nucleated RBC % Absolute Retic Percent Retic Immature Retic Fraction Retic Hgb Content Haptoglobin Sodium Potassium Chloride Carbon Dioxide Anion Gap BUN Creatinine Estim Creat Clear Calc Estimated GFR Glucose Calcium Iron TIBC % Saturation Ferritin Total Bilirubin 2.3 H Direct Bilirubin 0.0 AST ALT Alkaline Phosphatase Lactate Dehydrogenase 945 H Total Creatine Kinase Total Protein Albumin Vitamin B12 359.0 Folate 10.1 Ur Random Creatinine U Random Total Protein Protein/Creatinin Ratio Urine Albumin U Wlhdl-0-Zoygenay U Hroko-9-Zpennhfk U Beta Globulin U Gamma Globulin U Abnormal Prot Band 1 U Abnormal Prot Band 2 U Abnormal Prot Band 3 Urine PEP Interpret Stl Occult Blood (IFOB) SHMUEL, IgG Interpret Neg SHMUEL, Poly Interpret Negative SHMUEL, Complement Interp Not Performed 05/04/22 05/04/22 05/04/22 12:13 17:23 17:23 WBC RBC Hgb 10.6 L Hct 32.1 L MCV MCH MCHC RDW Plt Count MPV Immature Gran % (Auto) Neut % (Auto) Lymph % (Auto) [place] % (Auto) Eos % (Auto) Baso % (Auto) Lymph # (Auto) [place] # (Auto) Eos # (Auto) Baso # (Auto) Abs Immat Gran (auto) Absolute Neuts (auto) Absolute Nucleated RBC Nucleated RBC % Absolute Retic Percent Retic Immature Retic Fraction Retic Hgb Content Haptoglobin Sodium Potassium Chloride Carbon Dioxide Anion Gap BUN Creatinine Estim Creat Clear Calc Estimated GFR Glucose Calcium Iron TIBC % Saturatio
[2022-05-05] MEDS: HYDROmorphone HCL INJ (*CRX) 1 MG/ML SYR IV PUSH ×2 (09:02→20:19)
[2022-05-05] MEDS: CIPROFLOXACIN 400 MG/D5W 200ML 200 ML 200 MG IVPB ×2 (09:05→22:30)
--- NOTE | 2022-05-05 10:45 | PM.TDS ---
Transfer Discharge Sum: Prov Provider Date of admission: 05/02/22 18:26 Primary care physician: Roz Barney, MOULDER OPERATOR Admitting clinician: Dinesh Mcdaniel MD Consults: 05/02/22 Consult to Physician Routine Comment: spoke to @[phone] (,us) Consulting Provider: Rome Valladares custodial worker/MD group to consult: GI Reason for consultation: Acute Pancreatitis Has provider been notified: Yes Attending physician on discharge: Belia Rodriguez Discharging clinician: Loida Villatoro Anticipated date of transfer: 05/05/22 Receiving physician/facility: Dr. Lozano, Hospitalist DS: Admitting Diagnosis Discharge Date 05/05/2022 1045 Admitting Diagnosis Acute pancreatitis Hyperbilirubinemia Transaminitis DS: Discharge Diagnosis Discharge Diagnosis (1) Acute pancreatitis: Code(s): K85.90 - Acute pancreatitis without necrosis or infection, unspecified Status: Acute Assessment and Plan: - GI consulted. ERCP performed 05/04 for concern for possible Choledocholithiasis which showed severe localized duodenitis to the second portion of the duodenum and papilla with severe edematous change - Lipase at outside facility was >700 on admission and improved to normal with bowel rest. - He was treated with PRN IV dilaudid and IV zofran -fasting lipids WNL -Electrolytes were stable. (2) Hyperbilirubinemia: Code(s): E80.6 - Other disorders of bilirubin metabolism Status: Acute Assessment and Plan: - 4.3 Total Bilirubin on admission. Trended to 2.0 on 05/05 secondary to Choledocholithiasis as LFT's and Bili are both markedly elevated with ALT at 177, AST of 44 and Alk Phos of 166. - 05/02 direct bili 0.0, indirect 2.6 (3) Leukocytosis, unspecified: Code(s): D72.829 - Elevated white blood cell count, unspecified Status: Acute Assessment and Plan: - White count 30 on admission, trended down to 16.5 on 05/05. Secondary to acute pancreatitis and duodenitits. - Normal Lactic Acid - Started on Cipro and Flagyl empirically 05/02. Antibiotic day 4. (4) S/P right knee arthroscopy: Code(s): Z98.890 - Other specified postprocedural states Status: Acute Assessment and Plan: - Post-op Day #7. Continue postop care. (5) CAD (coronary artery disease): Code(s): I25.10 - Atherosclerotic heart disease of [place] coronary artery without angina pectoris Status: Acute Assessment and Plan: - Significant History identified from H: Cardiac stents x12, multiple cardiac catheterizations x4 - Bag Filler is Dr. Perez at [facility] in [facility] - Pt's only re-occlusion prevention is ASA. He does not take Plavix or other anticoagulant. - Continued on beta-geo, lisinopril and amlodipine. Statin stopped for elevated LFTs. - Aspirin stopped on admission for planned ERCP and hematoma, however, given patient significant cardiac disease and recent surgery will resume aspirin 81 mg daily. (6) HLD (hyperlipidemia): Code(s): E78.5 - Hyperlipidemia, unspecified Status: Acute Assessment and Plan: - Fasting lipid panel within normal limits this admission. - Statin held for elevated LFTs. (7) HTN (hypertension): Code(s): I10 - Essential (primary) hypertension Status: Acute Assessment and Plan: - Stable. Last BP 127/62 - Continue home meds of Amlodipine 10 mg po daily, Lisinopril 40 mg po daily, Metoprolol Succinate 100 mg po daily (8) Transaminitis: Code(s): R74.01 - Elevation of levels of liver transaminase levels Status: Acute Assessment and Plan: - as above. - RUQ US showed hepatic steatosis and ERCP for retained stones. - Hepatitis panel negative. (9) Hematoma: Code(s): T14.8XXA - Other injury of unspecified body region, initial encounter Status: Acute Assessment and Plan: - Patient has significant hematoma to the righ
[2022-05-05 13:08] LABS: EDCOVIDSCREEN Negative (Negative)
[2022-05-05 14:00] VITALS: BP 127/57; PULSE 93; RESP 16; TEMP 36.3; O2SAT 97
[2022-05-05 22:00] VITALS: BP 119/55; PULSE 72; RESP 18; TEMP 36.9; O2SAT 96
[2022-05-06] MEDS: metroNIDAZOLE 500 MG/ISO 100ML 500 MG/100 ML BAG 100 MG IVPB ×2 (05:58→13:47)
[2022-05-06 06:00] VITALS: BP 157/66; PULSE 77; RESP 18; TEMP 36.9; O2SAT 94
--- NOTE | 2022-05-06 09:26 | PM.IMPN ---
Progress Note: A&P Assessment and Plan (1) Acute pancreatitis: Code(s): K85.90 - Acute pancreatitis without necrosis or infection, unspecified Status: Acute Assessment and Plan: - GI consulted. ERCP performed 05/04 for concern for possible Choledocholithiasis which showed severe localized duodenitis to the second portion of the duodenum and papilla with severe edematous change - Lipase at outside facility was >700 on admission and improved to normal with bowel rest. - He was treated with PRN IV dilaudid and IV zofran -fasting lipids WNL -Electrolytes were stable. (2) Hyperbilirubinemia: Code(s): E80.6 - Other disorders of bilirubin metabolism Status: Acute Assessment and Plan: - 4.3 Total Bilirubin on admission. Trended to 2.0 on 05/05 secondary to Choledocholithiasis as LFT's and Bili are both markedly elevated with ALT at 177, AST of 44 and Alk Phos of 166. - 05/02 direct bili 0.0, indirect 2.6 (3) Leukocytosis, unspecified: Code(s): D72.829 - Elevated white blood cell count, unspecified Status: Acute Assessment and Plan: - White count 30 on admission, trended down to 16.5 on 05/05. Secondary to acute pancreatitis and duodenitits. - Normal Lactic Acid - Started on Cipro and Flagyl empirically 05/02. Antibiotic day 4. (4) S/P right knee arthroscopy: Code(s): Z98.890 - Other specified postprocedural states Status: Acute Assessment and Plan: - Post-op Day #7. Continue postop care. (5) CAD (coronary artery disease): Code(s): I25.10 - Atherosclerotic heart disease of [place] coronary artery without angina pectoris Status: Acute Assessment and Plan: - Significant History identified from [facility]: Cardiac stents x12, multiple cardiac catheterizations x4 - Beamer Operator is Dr. Perez at [facility] in [facility] - Pt's only re-occlusion prevention is ASA. He does not take Plavix or other anticoagulant. - Continued on beta-geo, lisinopril and amlodipine. Statin stopped for elevated LFTs. - Aspirin stopped on admission for planned ERCP and hematoma, however, given patient significant cardiac disease and recent surgery will resume aspirin 81 mg daily. (6) HLD (hyperlipidemia): Code(s): E78.5 - Hyperlipidemia, unspecified Status: Acute Assessment and Plan: - Fasting lipid panel within normal limits this admission. - Statin held for elevated LFTs. (7) HTN (hypertension): Code(s): I10 - Essential (primary) hypertension Status: Acute Assessment and Plan: - Stable. Last BP 127/62 - Continue home meds of Amlodipine 10 mg po daily, Lisinopril 40 mg po daily, Metoprolol Succinate 100 mg po daily (8) Transaminitis: Code(s): R74.01 - Elevation of levels of liver transaminase levels Status: Acute Assessment and Plan: - as above. - RUQ US showed hepatic steatosis and ERCP for retained stones. - Hepatitis panel negative. (9) Hematoma: Code(s): T14.8XXA - Other injury of unspecified body region, initial encounter Status: Acute Assessment and Plan: - Patient has significant hematoma to the right anterior thigh, swelling, firm and tight noted on admission. - venous doppler negative for DVT, but does show postoperative hematoma within a moderate-sized Wood's cyst at the right popliteal fossa. (10) Anemia: Code(s): D64.9 - Anemia, unspecified Status: Acute Assessment and Plan: - Hemoglobin 11 to 8.8. Today hgb 9.3 and stable from yesterday. - Serum iron and saturation low, B12 and folate within normal limits. Likely secondary to hematoma and postop anemia. He would benefit from iron supplementation when GI symptoms resolved. Plan CODE STATUS: FULL CODE Disposition: home when medically stable. Additional Plan Patient to be transferred to [facility] for evaluation by Biliary team.
[2022-05-06 09:30] VITALS: PULSE 84
[2022-05-06] MEDS: METOPROLOL SUCCINATE EXT REL 100 MG TABCR PO (09:30)
[2022-05-06] MEDS: lisinopriL 20 MG TABLET 40 MG PO (09:30)
[2022-05-06] MEDS: CHOLECALCIFEROL 1,000 UNITS TABLET 1000 UNITS PO (09:30)
[2022-05-06] MEDS: ASPIRIN 81 MG ENTERIC TABLET PO (09:30)
[2022-05-06] MEDS: PANTOPRAZOLE SODIUM IV 40 MG VIAL IV PUSH (09:30)
[2022-05-06] MEDS: amLODIPine BESYLATE 5 MG TABLET 10 MG PO (09:30)
[2022-05-06] MEDS: CIPROFLOXACIN 400 MG/D5W 200ML 200 ML 200 MG IVPB (09:31)
--- NOTE | 2022-05-06 13:37 | PM.IMPN ---
Progress Note: A&P Assessment and Plan (1) Acute pancreatitis: Code(s): K85.90 - Acute pancreatitis without necrosis or infection, unspecified Status: Acute Assessment and Plan: - GI consulted. ERCP performed 05/04 for concern for possible Choledocholithiasis which showed severe localized duodenitis to the second portion of the duodenum and papilla with severe edematous change - Lipase at outside facility was >700 on admission and improved to normal with medical management. - He was treated with PRN IV dilaudid and IV zofran and epigastric pain improved. - fasting lipids WNL - Electrolytes stable. (2) Hyperbilirubinemia: Code(s): E80.6 - Other disorders of bilirubin metabolism Status: Acute Assessment and Plan: - 4.3 Total Bilirubin on admission. Trended to 2.0 on 05/05 secondary to Choledocholithiasis as LFT's and Bili are both markedly elevated with ALT 177, AST 44 and Alk Phos 166. - 05/02 direct bili 0.0, indirect 2.6 - Repeat CMP in am. (3) Leukocytosis, unspecified: Code(s): D72.829 - Elevated white blood cell count, unspecified Status: Acute Assessment and Plan: - White count 30 on admission, trended down to 16.5 on 05/05. Secondary to acute pancreatitis and duodenitits. - Normal Lactic Acid - Started on Cipro and Flagyl empirically 05/02. Antibiotic day 5. Change to PO. (4) S/P right knee arthroscopy: Code(s): Z98.890 - Other specified postprocedural states Status: Acute Assessment and Plan: - Post-op Day #8. Continue postop care. - encouraged to ambulate. (5) CAD (coronary artery disease): Code(s): I25.10 - Atherosclerotic heart disease of [place] coronary artery without angina pectoris Status: Acute Assessment and Plan: - Significant History identified from [facility]: Cardiac stents x12, multiple cardiac catheterizations x4 - Donor Services Specialist is Dr. Perez at [facility] in [facility] - Pt's only re-occlusion prevention is ASA. He does not take Plavix or other anticoagulant. - Continued on beta-geo, lisinopril and amlodipine. Statin stopped for elevated LFTs. - Aspirin stopped on admission for planned ERCP and hematoma, however, given patient significant cardiac disease and recent surgery resumed aspirin 81 mg daily on 05/05. (6) HLD (hyperlipidemia): Code(s): E78.5 - Hyperlipidemia, unspecified Status: Acute Assessment and Plan: - Fasting lipid panel within normal limits this admission. - Statin held for elevated LFTs. (7) HTN (hypertension): Code(s): I10 - Essential (primary) hypertension Status: Acute Assessment and Plan: - Stable. Last BP 157/66, HR 77 - Continue home meds of Amlodipine 10 mg po daily, Lisinopril 40 mg po daily, Metoprolol Succinate 100 mg po daily (8) Transaminitis: Code(s): R74.01 - Elevation of levels of liver transaminase levels Status: Acute Assessment and Plan: - as above. - RUQ US showed hepatic steatosis and ERCP for retained stones. - Hepatitis panel negative. (9) Hematoma: Code(s): T14.8XXA - Other injury of unspecified body region, initial encounter Status: Acute Assessment and Plan: - Patient has significant hematoma to the right anterior thigh, swelling, firm and tight noted on admission. - 05/03 venous doppler negative for DVT, but does show postoperative hematoma within a moderate-sized Wood's cyst at the right popliteal fossa. (10) Anemia: Code(s): D64.9 - Anemia, unspecified Status: Acute Assessment and Plan: - Hemoglobin 11 to 8.8. 05/05 hgb 9.3 and stable. - Serum iron and saturation low, B12 and folate within normal limits. Likely secondary to hematoma and postop anemia. He would benefit from iron supplementation when GI symptoms resolved. Plan CODE STATUS: FULL CODE Disposition: home when medically stable. Additional Pl
[2022-05-06] MEDS: HYDROmorphone HCL INJ (*CRX) 1 MG/ML SYR IV PUSH ×2 (13:52→22:05)
[2022-05-06 14:00] VITALS: BP 138/57; PULSE 64; RESP 16; TEMP 36.7; O2SAT 97
--- NOTE | 2022-05-06 14:05 | PCCCNOTE ---
On 05/06/22, the student, Falguni Almaraz, provided care and completed [facility] documentation on this patient. I have reviewed the student's documentation and agree with the findings.
[2022-05-06 21:37] VITALS: BP 120/56; PULSE 59; RESP 14; TEMP 36.7; O2SAT 95
[2022-05-06] MEDS: CIPROFLOXACIN 500 MG TAB PO (22:03)
[2022-05-06] MEDS: metroNIDAZOLE 250 MG TABLET 500 MG PO (23:09)
[2022-05-07] VITALS (12 sets, daily range): BP systolic 108–153; BP diastolic 58–83; PULSE 59–86; RESP 16–24; TEMP 36.3–37; O2SAT 91–100
[2022-05-07] MEDS: metroNIDAZOLE 250 MG TABLET 500 MG PO (05:44)
[2022-05-07 06:27] LABS: Hematocrit 30.1 % (42.0-52.0); Hemoglobin 9.6 g/dL (14.0-18.0); Mean Corpuscular HGB Conc 31.9 g/dl (32-36); Mean Corpuscular Hemoglobin 29.6 pg (26-34); Mean Corpuscular Volume 92.9 fl (80-100); Mean Platelet Volume 10.7 fl (7.4-10.4); Platelet Count Result 362 k/mm3 (150-375); Red Blood Count 3.24 M/mm3 (4.6-6.20); Red Cell Distribution Width 14.2 % (11.5-14.5); White Blood Count 12.4 K/mm3 (4.5-10.0)
[2022-05-07 06:43] LABS: Alanine Aminotransferase 67 U/L (6-50); Albumin Level 2.6 g/dL (3.5-5.1); Alkaline Phosphatase 113 U/L (38-126); Anion Gap 5 mmol/L (8-16); Aspartate Amino Transferase 37 U/L (17-59); Bilirubin,Total 2.1 mg/dL (0.2-1.3); Blood Urea Nitrogen 11 mg/dL (9-20); Calcium 7.5 mg/dL (8.4-10.2); Carbon Dioxide 23 mmol/L (22-30); Chloride 104 mmol/L (98-107); Estimated CRCL calculation 82 ml/min; Estimated Glomerular Filt Rate > 60; Glucose 91 mg/dL (65-110); Potassium 3.5 mmol/L (3.4-5.0); Sodium 132 mmol/L (137-145)
--- NOTE | 2022-05-07 09:58 | PM.IMPN ---
Progress Note: A&P Assessment and Plan (1) Acute pancreatitis: Code(s): K85.90 - Acute pancreatitis without necrosis or infection, unspecified Status: Acute Assessment and Plan: - GI consulted. ERCP performed 05/04 for concern for possible Choledocholithiasis which showed severe localized duodenitis to the second portion of the duodenum and papilla with severe edematous change - Lipase at outside facility was >700 on admission and improved to normal with medical management. - He was treated with PRN IV dilaudid and IV zofran and epigastric pain improved. - fasting lipids WNL - Electrolytes stable. - Stable. (2) Hyperbilirubinemia: Code(s): E80.6 - Other disorders of bilirubin metabolism Status: Acute Assessment and Plan: - 4.3 Total Bilirubin on admission. Trended to 2.0 on 05/05 secondary to Choledocholithiasis. - ERCP today. - 05/02 direct bili 0.0, indirect 2.6 - Trend LFTs. (3) Leukocytosis, unspecified: Code(s): D72.829 - Elevated white blood cell count, unspecified Status: Acute Assessment and Plan: - White count 30 on admission, trended down to 16.5 on 05/05. Secondary to acute pancreatitis and duodenitits. - Normal Lactic Acid - Started on Cipro and Flagyl empirically 05/02. Antibiotic day 6. Changed to PO on 05/06. Continue x7-10 days based on patient clinical picture. (4) Transaminitis: Code(s): R74.01 - Elevation of levels of liver transaminase levels Status: Acute Assessment and Plan: - as above. Tbili 2.1, AST 37, ALT 67, Alk Phos 113. - RUQ US showed hepatic steatosis and ERCP for retained stones. - Hepatitis panel negative. (5) Hematoma: Code(s): T14.8XXA - Other injury of unspecified body region, initial encounter Status: Acute Assessment and Plan: - Patient has significant hematoma to the right anterior thigh, swelling, firm and tight noted on admission. - 05/03 venous doppler negative for DVT, but does show postoperative hematoma within a moderate-sized Wood's cyst at the right popliteal fossa. - Unchanged. (6) Anemia: Code(s): D64.9 - Anemia, unspecified Status: Acute Assessment and Plan: - Hemoglobin 11 to 8.8. 05/05 hgb 9.3 and stable. - Serum iron and saturation low, B12 and folate within normal limits. Likely secondary to hematoma and postop anemia. - Iron supplement started. (7) S/P right knee arthroscopy: Code(s): Z98.890 - Other specified postprocedural states Status: Acute Assessment and Plan: - Post-op Day #9. Continue postop care. - encouraged to ambulate. - Heparin SQ Q8 following ERCP for DVT prophylaxis. (8) CAD (coronary artery disease): Code(s): I25.10 - Atherosclerotic heart disease of [place] coronary artery without angina pectoris Status: Acute Assessment and Plan: - Significant History identified from [facility]: Cardiac stents x12, multiple cardiac catheterizations x4 - Charge Coordinator is Dr. Perez at [facility] in [facility] - Pt's only re-occlusion prevention is ASA. He does not take Plavix or other anticoagulant. - Continued on beta-geo, lisinopril and amlodipine. Statin stopped for elevated LFTs. - Aspirin stopped on admission for planned ERCP and hematoma, however, given patient significant cardiac disease and recent surgery resumed aspirin 81 mg daily on 05/05. - Stable. (9) HLD (hyperlipidemia): Code(s): E78.5 - Hyperlipidemia, unspecified Status: Acute Assessment and Plan: - Fasting lipid panel within normal limits this admission. - Statin held for elevated LFTs. Resume when normalized. (10) HTN (hypertension): Code(s): I10 - Essential (primary) hypertension Status: Acute Assessment and Plan: - Stable. Last BP 157/66, HR 77 - Continue home meds of Amlodipine 10 mg po daily, Lisinopril 40 mg po daily, Metoprolol Succinate 100 m
[2022-05-07] MEDS: LACTATED RINGERS 1,000 ML 150 ML IV CONT (10:45)
--- NOTE | 2022-05-07 10:56 | PC.NURSE ---
To GI lab per wheelchair @ [phone]. Report given prior to transportation to [facility].
--- NOTE | 2022-05-07 11:07 | WPDANESEPPF ---
Anes - Initial Pre Proc Eval Procedure: Operation Date: 05/04/22 13:00 Proposed Procedures p Endoscopic Retro Cholangiopancreatogram - Rome Valladares MD Operation Date: 05/07/22 12:00 Proposed Procedures p Endoscopic Retro Cholangiopancreatogram - Rome Valladares MD s Esophagogastroduodenoscopy - Rome Valladares MD Date/Time: 05/07/22 11:07 Surgeon: Roz Gomez NP Pre Op Diagnosis: PANCREATITIS Patient Data Age: 71 Gender: M Height: 1.65 m Weight: 104.5 kg Last Vital Signs Temp 36.4 C L 05/07/22 10:48 Pulse 66 05/07/22 10:48 Resp 20 05/07/22 10:48 BP 146/60 H 05/07/22 10:48 Pulse Ox 100 05/07/22 10:48 O2 Del Method Room Air 05/07/22 10:48 Allergies Allergy/AdvReac Type Severity Reaction Status Date / Time adhesive Allergy Severe RASH Verified 05/07/22 10:46 codeine Allergy Severe HIVES Verified 05/07/22 10:46 Penicillins Allergy Severe HIVES, Verified 05/07/22 10:46 SWELLING, DIFF BREATHING Sulfa (Sulfonamide Allergy Hives Verified 05/07/22 10:46 Antibiotics) Home Medications Medication Instructions Recorded Confirmed Type amlodipine 10 mg tablet 10 tablet PO DAILY 05/02/22 05/02/22 History aspirin 81 mg tablet,delayed 81 mg PO DAILY 05/02/22 05/02/22 History release atorvastatin 80 mg tablet 80 tablet PO DAILY 05/02/22 05/02/22 History cholecalciferol (vitamin D3) 25 25 mcg PO DAILY 05/02/22 05/02/22 History mcg (1,000 unit) tablet (Vitamin D3) famotidine 40 mg tablet 40 tablet PO DAILY 05/02/22 05/02/22 History lisinopril 40 mg tablet 40 tablet PO DAILY 05/02/22 05/02/22 History metoprolol succinate 100 mg 100 tablet PO DAILY 05/02/22 05/02/22 History tablet,extended release 24 hr nitroglycerin 0.4 mg sublingual 0.4 tablet sublingual PRN PRN 05/02/22 05/02/22 History tablet chest pain Laboratory Tests 05/07/22 05/07/22 05:42 05:42 WBC 12.4 K/mm3 H K/mm3 (4.5-10.0) RBC 3.24 M/mm3 L M/mm3 (4.6-6.20) Hgb 9.6 g/dL L g/dL (14.0-18.0) Hct 30.1 % L % (42.0-52.0) MCV 92.9 fl fl (80-100) MCH 29.6 pg pg (26-34) MCHC 31.9 g/dl L g/dl (32-36) RDW 14.2 % % (11.5-14.5) Plt Count 362 k/mm3 k/mm3 (150-375) MPV 10.7 fl H fl (7.4-10.4) Sodium 132 mmol/L L mmol/L (137-145) Potassium 3.5 mmol/L mmol/L (3.4-5.0) Chloride 104 mmol/L mmol/L (98-107) Carbon Dioxide 23 mmol/L mmol/L (22-30) Anion Gap 5 mmol/L L mmol/L (8-16) BUN 11 mg/dL mg/dL (9-20) Creatinine 0.80 mg/dL mg/dL (0.7-1.3) Estim Creat Clear Calc 82 ml/min ml/min Estimated GFR > 60 (59 - ) Glucose 91 mg/dL mg/dL (65-110) Calcium 7.5 mg/dL L mg/dL (8.4-10.2) Total Bilirubin 2.1 mg/dL H mg/dL (0.2-1.3) AST 37 U/L U/L (17-59) ALT 67 U/L H U/L (6-50) Alkaline Phosphatase 113 U/L U/L (38-126) Total Protein 5.0 g/dL L g/dL (6.3-8.2) Albumin 2.6 g/dL L g/dL (3.5-5.1) Patient hx anesthesia problems: none Family hx anesthesia problems: none Results Review: All pre-operative results and documents have been reviewed as part of the pre-operative evaluation. REPLACED BY [facility] Past Medical History Medical History CAD (coronary artery disease) Depression Diastolic heart failure History of left heart catheterization Hyperlipidemia Hypertension MRSA (methicillin resistant staph aureus) culture positive Paroxysmal atrial fibrillation PMR (polymyalgia rheumatica) Renal cancer Sciatica Surgical History Surgical History H/O partial nephrectomy History of cholecystectomy History of heart artery stent Social History Social History Smoking status: Former smoker Tobacco type: cigarettes [place]
[2022-05-07] MEDS: INDOMETHACIN 50 MG SUPP.RECT RECTAL (12:03)
--- NOTE | 2022-05-07 12:21 | SUR.OPER ---
EGD: [id number] ERCP: [id number]
--- NOTE | 2022-05-07 14:12 | PC.NURSE ---
Return from GI lab per dio. Report received from [facility]gs. present at bedside.
[2022-05-07] MEDS: METOPROLOL SUCCINATE EXT REL 100 MG TABCR PO (14:32)
[2022-05-07] MEDS: amLODIPine BESYLATE 5 MG TABLET 10 MG PO (14:32)
[2022-05-07] MEDS: lisinopriL 20 MG TABLET 40 MG PO (14:32)
[2022-05-07 18:55] LABS: Haptoglobin 91 mg/dL (43-212)
[2022-05-07] MEDS: CIPROFLOXACIN 500 MG TAB PO (20:27)
[2022-05-08 05:28] VITALS: BP 137/57; PULSE 65; RESP 17; TEMP 37; O2SAT 100
[2022-05-08] MEDS: HEPARIN SODIUM 5,000 UNITS/ML VIAL 5000 UNITS SUB-Q (05:28)
[2022-05-08 06:43] LABS: Hematocrit 28.9 % (42.0-52.0); Hemoglobin 9.5 g/dL (14.0-18.0); Mean Corpuscular HGB Conc 32.9 g/dl (32-36); Mean Corpuscular Hemoglobin 29.6 pg (26-34); Mean Platelet Volume 10.5 fl (7.4-10.4); Platelet Count Result 383 k/mm3 (150-375); Red Blood Count 3.21 M/mm3 (4.6-6.20); Red Cell Distribution Width 13.8 % (11.5-14.5); White Blood Count 14.9 K/mm3 (4.5-10.0)
[2022-05-08 06:46] LABS: INR 1.2; Prothrombin Time 14.9 Seconds (11.1-14.7)
[2022-05-08 06:47] LABS: Partial Thromboplastin Time 43.9 SECONDS (22.3-36.8)
[2022-05-08 06:51] LABS: Alanine Aminotransferase 57 U/L (6-50); Albumin Level 2.8 g/dL (3.5-5.1); Alkaline Phosphatase 117 U/L (38-126); Anion Gap 2 mmol/L (8-16); Aspartate Amino Transferase 28 U/L (17-59); Bilirubin,Total 1.8 mg/dL (0.2-1.3); Blood Urea Nitrogen 16 mg/dL (9-20); Calcium 7.6 mg/dL (8.4-10.2); Carbon Dioxide 29 mmol/L (22-30); Chloride 105 mmol/L (98-107); Estimated CRCL calculation 74 ml/min; Estimated Glomerular Filt Rate > 60; Glucose 109 mg/dL (65-110); Potassium 3.5 mmol/L (3.4-5.0); Sodium 136 mmol/L (137-145)
--- NOTE | 2022-05-08 08:38 | WPDGIPROGNO ---
Progress Note: A&P Assessment and Plan (1) Hyperbilirubinemia: Code(s): E80.6 - Other disorders of bilirubin metabolism Status: Acute Assessment and Plan: he is visibly jaundiced. His bilirubin is a bit lower today. I suspect he has common bile duct sludge or stone also explaining the mild bile duct dilatation. If this resolves spontaneously his bilirubin should drop relatively quickly. Assuming it does not, I will plan on performing ERCP tomorrow 05/08/2022. Jaundice has resolved. Bilirubin today is down to 1.9. (2) Transaminitis: Code(s): R74.01 - Elevation of levels of liver transaminase levels Status: Acute Assessment and Plan: AST is now down to normal. Also alkaline phosphatase is normal. (3) CAD (coronary artery disease): Code(s): I25.10 - Atherosclerotic heart disease of [place] coronary artery without angina pectoris Status: Acute Assessment and Plan: He has also had atrial fibrillation. He takes 1 aspirin tablet a day. (4) Acute pancreatitis: Code(s): K85.90 - Acute pancreatitis without necrosis or infection, unspecified Status: Acute Assessment and Plan: He has never had pancreatitis in the past. He does not drink alcohol. Was no recent change in his medications. It appears that he probably has choledocholithiasis. I akilah a picture explain the process. Also explained ERCP in told that tentatively I will schedule him for that to be done tomorrow. In the interim I think he can have a clear liquid diet 05/08/2022 after initially not being able to perform ERCP because of severe duodenitis and edema, we had attempted to transfer him to a biliary specialist in [place]. Unfortunately beds were not available. Yesterday I found that I was able to perform ERCP as his duodenitis had resolved. I recommend a low-fat diet for the next several weeks. Subjective Date/time seen: 05/08/22 08:38 he had regular diet last night including poor going and vegetables. He tolerated it well and is hungry for breakfast. He has had no abdominal pain. I discussed with him the findings of ERCP. What was thought to be a stone on CT scan was a clump of sludge. After sphincterotomy and sweep of the bile duct was cleared. His bilirubin today is down to 1.9. I reassured him that his bile duct is okay and that he has a low probability of recurrence Of issues because of the sphincterotomy. today his stools are loose Exam Const: General: alert Orientation/consciousness: patient oriented x3 Eyes: Sclera: sclerae normal Resp: Auscultation: clear to auscultation bilaterally Cardio: Rhythm: regular rhythm GI: Inspection: normal to inspection GI Palp: No abdominal tenderness, Yes Soft to palpation and Yes No hepatosplenomegaly present Auscultation: normal bowel sounds Skin: General skin exam: ecchymosis ( right lower extremity medial thigh) and purpura Neuro: General: patient oriented x3 Objective Data Vital Signs Vital Signs: Vital Signs - 24 hr 05/07/22 10:48 05/07/22 13:04 05/07/22 13:14 Temperature 36.4 C L 36.3 C L 36.3 C L Pulse Rate 66 66 66 Respiratory Rate 20 17 24 H Blood Pressure 146/60 H 138/62 133/68 Pulse Oximetry 100 100 98 Oxygen Delivery Room Air Room Air Room Air 05/07/22 13:24 05/07/22 13:34 05/07/22 13:44 Temperature 36.3 C L Pulse Rate 67 65 60 Respiratory Rate 18 18 18 Blood Pressure 108/83 122/70 150/58 H Pulse Oximetry 98 98 98 Oxygen Delivery Room Air Room Air Room Air 05/07/22 13:54 05/07/22 14:04 05/07/22 14:32 Temperature Pulse Rate 59 L 61 86 Respiratory Rate 23 H 23 H Blood Pressure 150/61 H 149/60 H Pulse Oximetry 98 100 Oxygen Delivery Room Air Room Air 05/07/22 14:00 05/07/22 22:00 05/07/22 20:00 Temperature 36.5 C 37.0 C Pulse Rate 64 76 Respiratory Rate 16 18 Blood Pressure 153/75 H 141/62 H Pulse Oximetry 98 98 Oxygen Delivery Room Air 05/08/22 05:28
[2022-05-08 09:33] VITALS: PULSE 72
[2022-05-08] MEDS: CIPROFLOXACIN 500 MG TAB PO (09:33)
[2022-05-08] MEDS: METOPROLOL SUCCINATE EXT REL 100 MG TABCR PO (09:33)
[2022-05-08] MEDS: amLODIPine BESYLATE 5 MG TABLET 10 MG PO (09:34)
[2022-05-08] MEDS: lisinopriL 20 MG TABLET 40 MG PO (09:34)
[2022-05-08] MEDS: CHOLECALCIFEROL 1,000 UNITS TABLET 1000 UNITS PO (09:35)
[2022-05-08] MEDS: PANTOPRAZOLE 40 MG TABLET PO (09:35)
--- NOTE | 2022-05-08 10:49 | PM.DS ---
DS: Admitting Diagnosis Discharge Date 05/08/2022 1122 Admitting Diagnosis Acute pancreatitis Choledocholithiasis DS: Discharge Diagnosis Discharge Diagnosis (1) Acute pancreatitis: Code(s): K85.90 - Acute pancreatitis without necrosis or infection, unspecified Status: Acute Assessment and Plan: Patient presented to outside medical facility and found to have lipase >700. CT abd/pelvis at this facility was concerning for choledocholitiasis. He was transferred to our facility for ERCP. GI was consulted. He was made NPO and treated with IV hydration, IV diluadid and IV zofran. Lipase returned to normal level and his pain improved. EGD was performed 05/04 showed severe localized duodenitis to the second portion of the duodenum and papilla with severe edematous change. (2) Choledocholithiasis with cholecystitis: Code(s): K80.40 - Calculus of bile duct with cholecystitis, unspecified, without obstruction Status: Acute Assessment and Plan: Patient was treated with IV Ciprofloxacin q12 and IV Metronidazole empirically starting on 05/02. This was continued until discharge on 05/08, for a total 7-day antibiotic course. ERCP was conducted 05/07 with results as below. (3) Hyperbilirubinemia: Code(s): E80.6 - Other disorders of bilirubin metabolism Status: Acute Assessment and Plan: The patient was noted to have Tbili of 4.3 on admission. 05/02 direct bili 0.0, indirect 2.6. It trended to 2.0 on 05/05 and was secondary to Choledocholithiasis. Patient underwent EGD on 05/05 showing duodenitis as above. [facility] consulted for transfer and evaluation by Biliary team. The patient was placed on the transfer list on 05/05, however, no beds were available. He underwent successful ERCP on 05/07 where biliary sludge and gallstones were removed via deep bile duct cannulation with complete clearance of stones. On discharge date 05/08 LFTs were trending down: Tbili 1.8, AST 28, ALT 57, Alk Phos 117. (4) Transaminitis: Code(s): R74.01 - Elevation of levels of liver transaminase levels Status: Acute Assessment and Plan: LFTs were elevated on admission with Tbili 4.3, AST 146, ALT 292, and Alk phos 219, 05/02 CT showed choledocholithiasis. 05/03 RUQ US showed hepatic steatosis and ERCP showed biliary sludge and gallstones. Hepatitis panel negative. LFTs were trending down by discharge. (5) Hematoma: Code(s): T14.8XXA - Other injury of unspecified body region, initial encounter Status: Acute Assessment and Plan: Patient had significant hematoma to the right anterior thigh, swelling, firm and tight noted on admission. He reported this was following his orthopedic surgery where a turniquet was placed at the site. 05/03 venous doppler was negative for DVT, but did show postoperative hematoma within a moderate-sized Wood's cyst at the right popliteal fossa. Hematoma did not show worsening during his hospital stay. He was counseled on elevation. Aspirin was held on admission and H/H was monitored. H/H remained stable and aspirin was resumed on 05/05. (6) Anemia: Code(s): D64.9 - Anemia, unspecified Status: Acute Assessment and Plan: Lab work showed Hemoglobin 11 to 8.8. hgb/hct were monitored and remained stable. Upon discharge H/H was 9.5/28.9 and stable. Serum iron 24 and saturation 11%. B12 and folate were within normal limits. Iron deficiency anemia was thought to be secondary to hematoma and postop anemia. (7) S/P right knee arthroscopy: Code(s): Z98.890 - Other specified postprocedural states Status: Acute Assessment and Plan: Surgical incision was monitored postop. Aside from right thigh hematoma described above. No s/s surgical site infection or DVT were noted. Heparin SQ Q8 was started for DVT prophylaxis following ERCP and the patient was concerned for bleeding out (8) CAD (coronary artery dis
[2022-05-11 04:57] LABS: Total Protein/Creatinine Ratio 357 mg/g creat (22-128)
== END 2022-05-08 13:00 | disposition home or self-care (01) | DRG 444 ==
PROVIDERS: Internal Medicine Gastroenterology; Nurse Practitioner; Nurse Practitioner Adult Health; Nurse Practitioner Family; Admitting Provider Chiropractor; PCP Nurse Practitioner Family; Visit Provider Nurse Practitioner Family
PROC: 0DJ08ZZ Inspection of Upper Intestinal Tract, Via Natural or Artificial Opening Endoscopic (ICD-10-PCS; CPT 43260; principal; 2022-05-04 13:00)
PROC: 0DJ08ZZ Inspection of Upper Intestinal Tract, Via Natural or Artificial Opening Endoscopic (ICD-10-PCS; CPT 43235; 2022-05-07 12:00)
DX: K80.50 Calculus of bile duct without cholangitis or cholecystitis without obstruction (principal); K85.90 Acute pancreatitis without necrosis or infection, unspecified; I50.32 Chronic diastolic (congestive) heart failure; M96.840 Postprocedural hematoma of a musculoskeletal structure following a musculoskeletal system procedure; Y83.8 Other surgical procedures as the cause of abnormal reaction of the patient, or of later complication, without mention of misadventure at the time of the procedure; M71.21 Synovial cyst of popliteal space [Baker], right knee; I11.0 Hypertensive heart disease with heart failure; K21.00 Gastro-esophageal reflux disease with esophagitis, without bleeding; K31.9 Disease of stomach and duodenum, unspecified; K29.80 Duodenitis without bleeding; K57.90 Diverticulosis of intestine, part unspecified, without perforation or abscess without bleeding; D50.8 Other iron deficiency anemias; K76.0 Fatty (change of) liver, not elsewhere classified; E80.6 Other disorders of bilirubin metabolism; Z20.822 Contact with and (suspected) exposure to COVID-19; D72.829 Elevated white blood cell count, unspecified; I25.10 Atherosclerotic heart disease of native coronary artery without angina pectoris; E78.5 Hyperlipidemia, unspecified; R74.01 Elevation of levels of liver transaminase levels; I48.0 Paroxysmal atrial fibrillation; M35.3 Polymyalgia rheumatica; M54.30 Sciatica, unspecified side; I25.2 Old myocardial infarction; Z79.82 Long term (current) use of aspirin; Z79.899 Other long term (current) drug therapy; Z85.528 Personal history of other malignant neoplasm of kidney; Z86.14 Personal history of Methicillin resistant Staphylococcus aureus infection; Z87.891 Personal history of nicotine dependence; Z90.49 Acquired absence of other specified parts of digestive tract; Z90.5 Acquired absence of kidney; Z95.5 Presence of coronary angioplasty implant and graft; Z98.890 Other specified postprocedural states
CPT/HCPCS: 36415; 74329; 76705; 80053; 80061; 80074; 80076; 82247; 82248; 82274; 82550; 82570; 82607; 82728; 82746; 83010; 83036; 83540; 83550; 83605; 83615; 83690; 83735; 84145; 84156; 84166; 85014; 85018; 85025; 85027; 85046; 85610; 85730; 86140; 86880; 87040; 87426; 93971; A9270; C9113; C9803; J0330; J0744; J1100; J1170; J1644; J2001; J2370; J2405; J2704; J3480; J7030; J7120